=== PATIENT | female | born 1985 | race Caucasian/White ===

== ENCOUNTER 2020-10-05 15:52 | Emergency (ER) | payer SELFPAY ==
[~2020-10-05] VITALS: Ht 154.9 cm; Wt 72.6 kg
== END 2020-10-05 19:25 | disposition left against medical advice (07) ==
LOC: ED 15:52
DX: Z00.8 Encounter for other general examination (principal); Z53.21 Procedure and treatment not carried out due to patient leaving prior to being seen by health care provider